=== PATIENT | female | born 1995 | race Hispanic/Latino ===

== ENCOUNTER 2021-05-27 14:49 | Outpatient (CLI) | payer SELFPAY ==
[2021-05-27 15:58] LABS: #Eosinphils 0.2 10x3/uL (0.0-0.5); #Monocytes 0.7 10x3/uL (0.0-1.1); #Neutrophils 3.3 10x3/uL (1.5-8.4); %Basophils 0.4 % (0.0-2.0); %Eosinophils 2.6 % (0.0-6.0); %Lymphocytes 38.3 % (18.0-47.0); %Monocytes 9.6 % (0.0-10.0); %Neutrophils 48.8 % (40.0-75.0); Hemoglobin 13.4 g/dL (12.0-15.5); Mean Corpuscular HGB CONC 33.3 g/dL (32.0-36.0); Mean Corpuscular Volume 93.3 fl (81.6-98.3); Platelet Count 230 10x3/uL (150-450); RBC Distribution Width 13.1 % (11.5-14.5); Red Blood Cell (RBC) Count 4.32 10x6/uL (3.90-5.03); White Blood Cell (WBC) Count 6.8 10x3/uL (3.5-10.5)
[2021-05-27 16:29] LABS: BHCG - Serum Negative (NEGATIVE); Pregs Control Background? CLEAR/WHITE (CLR/WHITE); Pregs Control Bar Appear? YES (CONTROL BAR)
[2021-05-27 23:47] LABS: SARS-CoV-2 PCR by NAA Not Detected (NotDetected)
== END 2021-05-27 14:50 | disposition home or self-care (01) ==
LOC: LABBT 14:49
PROVIDERS: ATTEND Surgery
DX: Z01.812 Encounter for preprocedural laboratory examination (principal); Q83.1 Accessory breast; Z20.822 Contact with and (suspected) exposure to COVID-19
CPT/HCPCS: 84703; 85025; U0003; U0005

== ENCOUNTER 2021-05-30 08:16 | Day surgery (SDC) | payer OTHER ==
[2021-05-27 12:00] VITALS: BMI 31.6
[2021-05-30] MEDS ORDERED: Bupivacaine 0.25% HCL 30 ML VIAL ONE (09:38)
[2021-05-30] MEDS ORDERED: Xylocaine 1% w/ Epi 1:100K 10 ML VIAL ONE (09:38)
[2021-05-30] MEDS ORDERED: Famotidine/PF 20 mg/2ml Vial ONE (09:40)
[2021-05-30] MEDS ORDERED: Fentanyl 250 MCG/5 ML VIAL ONE (09:40)
[2021-05-30] MEDS ORDERED: ceFAZolin (BATCH) 2 GM/100 ML BAG ONE (09:46)
[2021-05-30] MEDS ORDERED: Dexamethasone 20 MG/5 ML VIAL ONE (09:56)
[2021-05-30] MEDS ORDERED: Lidocaine 1% PF 5 ML VIAL ONE (09:56)
[2021-05-30] MEDS ORDERED: Ondansetron PF 4 MG/2 ML Vial ONE (09:56)
[2021-05-30] MEDS ORDERED: PHENYLEPHRINE-NS 100 MCG/ML 10 ML SYRINGE ONE (09:56)
[2021-05-30] MEDS ORDERED: Ketorolac Tromethamine 30 MG/ML VIAL ONE (09:56)
[2021-05-30] MEDS ORDERED: Metoclopramide HCl 10 MG/2 ML VIAL ONE (09:56)
[2021-05-30] MEDS ORDERED: PROPOFOL 200 MG/20 ML VIAL ONE (09:56)
== END 2021-05-30 12:45 | disposition home or self-care (01) ==
LOC: SDC 08:16
PROVIDERS: ATTEND Surgery
PROC: 0HBY0ZZ Excision of Supernumerary Breast, Open Approach (ICD-10-PCS; principal; 2021-05-30)
DX: Q83.1 Accessory breast (principal); N60.81 Other benign mammary dysplasias of right breast; E66.9 Obesity, unspecified; Z68.31 Body mass index [BMI] 31.0-31.9, adult
CPT/HCPCS: 88307; J0690; J1100; J1885; J2405; J2704; J2765; J3010; S0020; S0028